=== PATIENT | female | born 1990 | race Caucasian/White ===

== ENCOUNTER 2018-02-19 18:23 | Emergency (ER) | payer OTHER ==
[2018-02-19 18:47] VITALS: BP 123/66; PULSE 79; TEMP 98.3; BMI 38.9
--- NOTE | 2018-02-19 19:26 | PDOC ---
*Physical Exam - Vital Signs Last Vital Signs Temp Pulse Resp BP Pulse Ox 98.3 F 79 18 123/66 99 02/19/18 18:44 02/19/18 18:44 02/19/18 18:44 02/19/18 18:44 02/19/18 18:44 Medical Decision Making - Medical Decision Making 02/19/18 19:26 27 yo F currently being worked up by rn gynecology for dysfunctional uterine bleeding Pt presents to the ER for evaluation of vaginal bleeding She is upset that her rn gynecology did not perform an US Pt not interested in having labs done Pt seen by Midlevel Provider under my direct supervision Pt encouraged to allow us to do labs to start Pt does not want to wait for results Signed out AMA I agree with plan as outlined by Midlevel Provider *DC/Admit/Observation/Transfer Diagnosis at time of Disposition: Dysfunctional uterine bleeding - Discharge Dispostion Disposition: AGAINST MEDICAL ADVICE Condition at time of disposition: Stable - Referrals - Patient Instructions Printed Discharge Instructions: DI for Vaginal Bleeding Additional Instructions: Follow up with your [facility] [employer], keep your appointment for 02/21/18. Return to the ED for dizziness, chest pain, fainting, worsening bleeding > 1 pad per hour. - Post Discharge Activity
--- NOTE | 2018-02-19 20:31 | PDOC ---
History of Present Illness - General Chief Complaint: Vaginal Bleeding Stated Complaint: ABDOMINAL PAIN, BLEEDING Time Seen by Provider: 02/19/18 19:24 History Source: Patient Exam Limitations: No Limitations - History of Present Illness Initial Comments: 02/19/18 20:27 Patient is a 27 year old lesbian female with no pmhx c/o vaginal bleeding x 2 months. Patient states she was on control pills due to amenorrhea for about 8 months. States her periods became regular however she thought that the pills were making her too fat and got off the control pills 2 months ago. Since then she's had vaginal bleeding for the past 2 months now associated with lower abdominal cramping and passing clots and changing a pad and tampon 10 day. States she is seeing her PBX TEACHER 2 weeks ago and put on Provera for 10 days, she completed her course one week ago, however, has not resolved the bleeding. Five days ago she was at her doctor's office and he will blood, checked a test which was negative, also told her that he would not do ultrasound and she'll her bleeding stopped. Patient is here requesting ultrasound, however does did not want to to stay for the results of the ultrasound or the other workup which includes labs. She feels fatigued from going back and forth about her menses. Denies any chest pain, shortness of breath, dizziness, weakness. PMD: in the [place] PMHX: as above PSOCHX: as above ALL: NKDA GENERAL/CONSTITUTIONAL: [No fever or chills. No weakness. No weight change.] HEAD, EYES, EARS, NOSE AND THROAT: [No change in vision. No ear pain or discharge. No sore throat.] CARDIOVASCULAR: [No chest pain or shortness of breath.] RESPIRATORY: [No cough, wheezing, or hemoptysis.] GASTROINTESTINAL: [No nausea, vomiting, diarrhea or constipation. No rectal bleeding.] GENITOURINARY: [No dysuria, frequency, or change in urination.] MUSCULOSKELETAL: [No joint or muscle swelling or pain. No neck or back pain.] SKIN AND BREASTS: [No rash or easy bruising.] NEUROLOGIC: [No headache, vertigo, loss of consciousness, or loss of sensation.] PSYCHIATRIC: [No depression or anxiety.] ENDOCRINE: [No increased thirst. No abnormal weight change.] HEMATOLOGIC/LYMPHATIC: [No anemia, easy bleeding, or history of blood clots.] ALLERGIC/IMMUNOLOGIC: [No hives or skin allergy. No latex allergy.] GENERAL: [The patient is awake, alert, and fully oriented, in no acute distress. ] HEAD: [Normal with no signs of trauma.] EYES: [Pupils equal, round and reactive to light, extraocular movements intact, sclera anicteric, conjunctiva clear.] ENT: [Ears normal, nares patent, oropharynx clear without exudates. Moist mucous membranes.] NECK: [Normal range of motion, supple without lymphadenopathy, JVD, or masses.] LUNGS: [Breath sounds equal, clear to auscultation bilaterally. No wheezes, and no crackles.] HEART: [Regular rate and rhythm, normal S1 and S2 without murmur, rub.] ABDOMEN: [Soft, nontender, normoactive bowel sounds. No guarding, no rebound. No masses.] PELVIC: nomral external genitalia, no blood in the vault, minimal bleeding from closed os EXTREMITIES: [Normal range of motion, no edema. No clubbing or cyanosis. No cords, erythema, or tenderness.] NEUROLOGICAL: [Cranial nerves II through XII grossly intact. Normal speech, normal gait.] PSYCH: [Normal mood, normal affect.] SKIN: [Warm, Dry, normal turgor, no rashes or lesions noted.] Past History - Past Medical History Allergies/Adverse Reactions: Allergies Allergy/AdvReac Type Severity Reaction Status Date / Time No Known Allergies Allergy Verified 02/19/18 18:47 Home Medications: Ambulatory Orders NK [No Known Home Medication] 02/19/18 COPD: No - Suicide/Smoking/Psychosocial Hx Smoking Status: Yes Smoking History: Current every day smoker Number of Cigarettes Smoked Daily: 10 Information on smoking cessation initiated: No 'Breaking Loose' booklet given: 04/26/16 Hx Alcohol Use: No Drug/Substance Use Hx: No Substance Use Type: None *Physical Exam - Vital Signs Last Vital Signs Temp Pulse Resp BP Pulse Ox 98.3 F 79 18 123/66 99 02/19/18 18:44 02/19/18 18:44 02/19/18 18:44 02/19/18 18:44 02/19/18 18:44 Medical Decision Making - Medical Decision Making 02/19/18 20:51 02/19/18 20:27 Patient is a 27 year old lesbian female with no pmhx c/o vaginal bleeding x 2 months. Here requesting to have US to be done, does not want to wait for results or any of the work up in the ED. will have the patient sign out AMA *DC/Admit/Observation/Transfer Diagnosis at time of Disposition: Dysfunctional uterine bleeding - Discharge Dispostion Disposition: AGAINST MEDICAL ADVICE Condition at time of disposition: Stable - Referrals - Patient Instructions Printed Discharge Instructions: DI for Vaginal Bleeding Additional Instructions: Follow up with your PBX TEACHER, keep your appointment for 02/21/18. Return to the ED for dizziness, chest pain, fainting, worsening bleeding > 1 pad per hour. - Post Discharge Activity
== END 2018-02-19 21:15 | disposition left against medical advice (07) ==
LOC: JER 18:23
DX: N93.8 Other specified abnormal uterine and vaginal bleeding (principal)
CPT/HCPCS: 99282-25

== ENCOUNTER 2020-07-27 22:33 | Emergency (ER) | payer OTHER ==
[2020-07-27 22:51] VITALS: BP 131/74; PULSE 110; TEMP 98.5; BMI 43.0
[2020-07-27] MEDS ORDERED: KETOROLAC TROMETHAMINE 15 MG/ML VIAL IM ONE (23:28)
[2020-07-27] MEDS ORDERED: KETOROLAC TROMETHAMINE 15 MG/ML VIAL ONE (23:33)
[2020-07-28 01:11] LABS: EPI CELLS >36 /uL (0-25.1); HYALINE CASTS 6 /uL (0-3.1); URINE APPEARANCE CLOUDY; URINE BACTERIA 927 /uL (0-1359); URINE BILIRUBIN NEGATIVE (NEGATIVE); URINE COLOR YELLOW; URINE GLUCOSE (UA) NEGATIVE (NEGATIVE); URINE KETONE NEGATIVE (NEGATIVE); URINE LEUK ESTERASE 2+ (NEGATIVE); URINE NITRITE NEGATIVE (NEGATIVE); URINE PROTEIN NEGATIVE (NEGATIVE); URINE RBC 42 /uL (0-23.9); URINE UROBILINOGEN 0.2 mg/dL (0.2-1.0); URINE WBC 71 /uL (0-25.8)
[2020-07-28] MEDS ORDERED: NITROFURANTOIN MACROCRYSTAL 50 MG CAPSULE (FP) PO ONE (01:30)
[2020-07-28] MEDS ORDERED: NITROFURANTOIN MACROCRYSTAL 50 MG CAPSULE (FP) ONE (01:35)
== END 2020-07-28 01:40 | disposition home or self-care (01) ==
LOC: JER 22:33
PROC: 3E0233Z Introduction of Anti-inflammatory into Muscle, Percutaneous Approach (ICD-10-PCS; principal; 2020-07-27)
DX: R10.2 Pelvic and perineal pain (principal); N93.9 Abnormal uterine and vaginal bleeding, unspecified
CPT/HCPCS: 76830-TC; 81003; 84703; 87086; 99285-25

== ENCOUNTER 2020-11-15 19:08 | Emergency (ER) | payer OTHER ==
[2020-11-15 19:19] VITALS: BP 121/59; PULSE 71; TEMP 97; BMI 40.2
[2020-11-15] MEDS ORDERED: ACETAMINOPHEN 500 MG TABLET (FP) PO ONE (19:55)
[2020-11-15] MEDS ORDERED: ACETAMINOPHEN 325 MG TABLET (FP) ONE (19:58)
[2020-11-15 20:11] LABS: PH,URINE 5.5 (5.0-8.0); URINE APPEARANCE CLOUDY; URINE BILIRUBIN NEGATIVE (NEGATIVE); URINE COLOR YELLOW; URINE GLUCOSE (UA) NEGATIVE (NEGATIVE); URINE KETONE NEGATIVE (NEGATIVE); URINE LEUK ESTERASE NEGATIVE (NEGATIVE); URINE NITRITE NEGATIVE (NEGATIVE); URINE PROTEIN NEGATIVE (NEGATIVE); URINE UROBILINOGEN 0.2 mg/dL (0.2-1.0)
[2020-11-15 20:23] LABS: BASO % 0.7 % (0-2.0); EOS % 3.1 % (0-4.5); HEMATOCRIT 39.4 % (32.4-45.2); HEMOGLOBIN 12.7 GM/dL (10.7-15.3); LYMPH % 19.2 % (8-40); MCH 25.9 pg (25.7-33.7); MCHC 32.2 g/dl (32.0-36.0); MEAN CELL VOLUME 80.4 fl (80-96); MEAN PLT VOLUME 8.2 fl (7.5-11.1); MONO % 7.3 % (3.8-10.2); NEUT % 69.7 % (42.8-82.8); PLATELET COUNT 274 K/MM3 (134-434); RDW 15.9 % (11.6-15.6); WHITE BLOOD COUNT 9.7 K/mm3 (4.0-10.0)
[2020-11-15 20:46] LABS: POTASSIUM 3.9 mmol/L (3.5-5.1)
[2020-11-15 20:48] LABS: ALBUMIN 3.2 g/dl (3.4-5.0); BLOOD UREA NITROGEN 9.5 mg/dL (7-18); CALCIUM 8.7 mg/dL (8.5-10.1)
[2020-11-15 20:51] LABS: CREATININE 0.5 mg/dL (0.55-1.3)
[2020-11-15 20:53] LABS: BILIRUBIN,TOTAL 0.1 mg/dL (0.2-1); TOT PROT 7.1 g/dl (6.4-8.2)
== END 2020-11-15 22:03 | disposition home or self-care (01) ==
LOC: JER 19:08
DX: O26.899 Other specified pregnancy related conditions, unspecified trimester (principal); R10.9 Unspecified abdominal pain; Z3A.08 8 weeks gestation of pregnancy
CPT/HCPCS: 36415; 76817-TC; 80053; 81003; 83690; 84702; 85025; 86850; 86900; 86901; 87086; 87186; 99284-25

== ENCOUNTER 2022-04-19 20:52 | Emergency (ER) | payer OTHER ==
[2022-04-19 21:00] VITALS: BP 107/70; PULSE 80; RESP 20; TEMP 98.2; BMI 40.2
[2022-04-19] MEDS ORDERED: ACETAMINOPHEN 325 MG TABLET (FP) PO ONE (23:16)
[2022-04-19] MEDS ORDERED: LIDOCAINE 5% TOPICAL PATCH TP ONE (23:16)
[2022-04-19] MEDS ORDERED: LIDOCAINE 5% TOPICAL PATCH ONE (23:20)
[2022-04-19] MEDS ORDERED: ACETAMINOPHEN 325 MG TABLET (FP) ONE (23:20)
[2022-04-20] MEDS ORDERED: IBUPROFEN 600 MG TABLET (FP) PO ONE ×2 (00:02)
[2022-04-20] MEDS ORDERED: LIDOCAINE PATCH REMOVAL MC ONE (11:00)
== END 2022-04-20 00:08 | disposition home or self-care (01) ==
LOC: JER 20:52
DX: M54.50 Low back pain, unspecified (principal)
CPT/HCPCS: 84703; 99283-25